=== PATIENT | male | born 1965 | race African-American/Black ===

== ENCOUNTER 2023-05-30 03:27 | Emergency (ER) | payer MEDICAID ==
[~2023-05-30] VITALS: Ht 182.9 cm; Wt 77.0 kg
[2023-05-30 03:38] VITALS: O2SAT 98
[2023-05-30] MEDS ORDERED: OXYCODONE HCL/ACETAMINOPHEN 5/325MG TABLET PO ONE (05:15)
[2023-05-30] MEDS ORDERED: LIDOCAINE HCL 1% 20ML VIAL (Pyxis) INJ INFIL ONE (05:15)
[2023-05-30 07:44] VITALS: BP 138/84; PULSE 66; RESP 20; TEMP 98.1
== END 2023-05-30 07:51 | disposition home or self-care (01) ==
LOC: ER 03:27
DX: S63.257A Unspecified dislocation of left little finger, initial encounter (principal); X58.XXXA Exposure to other specified factors, initial encounter; Y93.89 Activity, other specified; Y92.89 Other specified places as the place of occurrence of the external cause; Y99.8 Other external cause status
CPT/HCPCS: 73130; 99283; J3490; Z7610 ×2